=== PATIENT | male | born 1960 | race Caucasian/White ===

== ENCOUNTER 2019-04-20 15:47 | Inpatient (IN) | payer SELFPAY ==
[2019-04-20] MEDS: NORMAL SALINE 1000 ML 1,000 ML IV PRN ×2 (15:56→17:13)
[2019-04-20] MEDS ORDERED: DILTIAZEM HCL INJ 25 MG/5 ML VIAL ONE (15:59)
[2019-04-20] MEDS ORDERED: DILTIAZEM HCL/D5W 125 MG/125 ML RTUINJ IV ONE (16:06)
[2019-04-20] MEDS ORDERED: DILTIAZEM HCL INJ 25 MG/5 ML VIAL IV ONE (16:24)
[2019-04-20] MEDS ORDERED: DILTIAZEM HCL/D5W 125 MG/125 ML RTUINJ IV PRN ×2 (16:25→18:11)
[2019-04-20] MEDS ORDERED: LORAZEPAM INJ 2 MG/1 ML VIAL IV ONE (16:26)
[2019-04-20 16:40] LABS: ABSOLUTE EOSINOPHILS # (AUTO) 0.1 10^3/uL (0.0-0.6); ABSOLUTE LYMPHOCYTES (AUTO) 2.2 10^3/uL (0.5-4.7); ABSOLUTE MONOCYTES (AUTO) 1.1 10^3/uL (0.1-1.4); ABSOLUTE NEUT (AUTO) 6.6 10^3/uL (1.7-8.2); BASOPHILS % (AUTO) 0.4 % (0-2); EOSINOPHILS % (AUTO) 0.7 % (0-6); HEMATOCRIT 45.2 % (37.9-51.0); HEMOGLOBIN 15.8 g/dL (13.5-17.0); MEAN CORPUSCULAR HEMOGLOBIN 33.5 pg (27.0-33.4); MEAN CORPUSCULAR VOLUME 96 fl (80-97); MONOCYTES % (AUTO) 10.9 % (3-13); PLATELET COUNT 259 10^3/uL (150-450); RED BLOOD COUNT 4.73 10^6/uL (4.35-5.55); RED CELL DISTRIBUTION WIDTH 12.8 % (11.5-14.0); TOTAL CELLS COUNTED % (AUTO) 100 %
[2019-04-20 16:55] LABS: ALBUMIN 4.4 g/dL (3.5-5.0); ALKALINE PHOSPHATASE 69 U/L (38-126); ANION GAP 10 (5-19); ASPARTATE AMINO TRANSFERASE 49 U/L (17-59); BILIRUBIN,DIRECT 0.2 mg/dL (0.0-0.4); BILIRUBIN,TOTAL 0.6 mg/dL (0.2-1.3); BLOOD UREA NITROGEN 12 mg/dL (7-20); CALCIUM 9.3 mg/dL (8.4-10.2); CARBON DIOXIDE 27 mmol/L (22-30); CHLORIDE 97 mmol/L (98-107); GLUCOSE 220 mg/dL (75-110); POTASSIUM 4.2 mmol/L (3.6-5.0); TOTAL PROTEIN 7.4 g/dL (6.3-8.2)
[2019-04-20 16:56] LABS: ALCOHOL < 10 mg/dL (NONE DETECTED)
[2019-04-20] MEDS ORDERED: ENOXAPARIN SODIUM INJ 150 MG/1 ML DISP.SYRIN SUBCUT ONE (17:23)
--- NOTE | 2019-04-20 17:24 | ER Document Report ---
Entered by MYRANDA MONTIEL SCRIBE 04/20/19 0525 Acting as scribe for:KEN LIN IV, MD ED Cardiac - General Chief Complaint: Chest Pain Stated Complaint: CHEST PAIN/DIFFICULTY BREATHING/BLURRY VISION Mode of Arrival: Ambulatory Information source: Patient Notes: This 58 year old male patient presents to the emergency department [facility] with complaints of a heart racing sensation, palpitations, chest pain, and associated shortness of breath. Patient states all of these symptoms began suddenly this morning about 3 hours prior to arrival. Patient adds that he feels like anxiety may be playing a factor today. 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 Patient states that he has also been binge drinking the last few days, with his last alcoholic beverage being 14 hours ago. TRAVEL OUTSIDE OF THE [place] IN LAST 30 DAYS: No - Related Data Allergies/Adverse Reactions: Penicillins Allergy (Verified 04/20/19 16:50) Home Medications: lisinpril. crestor. gabapentin. nexium. daily vitamin. humalog. lantus Past Medical History - General Information source: Patient - Social History Smoking Status: Current Every Day Smoker Cigarette use (# per day): Yes Frequency of alcohol use: binge started Family History: Reviewed & Not Pertinent, DM, Other - Cancer Patient has suicidal ideation: No Patient has homicidal ideation: No Endocrine Medical History: Reports: Hx Diabetes Mellitus Type 2 Past Surgical History: Reports: Hx Nose Surgery - At the age of 14 Review of Systems - Review of Systems Constitutional: No symptoms reported EENT: No symptoms reported Cardiovascular: See HPI, Chest pain, Palpitations, Heart racing Respiratory: See HPI, Short of breath Gastrointestinal: No symptoms reported Genitourinary: No symptoms reported Male Genitourinary: No symptoms reported Musculoskeletal: No symptoms reported Skin: No symptoms reported Hematologic/Lymphatic: No symptoms reported Neurological/Psychological: See HPI, Anxiety -: Yes All other systems reviewed and negative Physical Exam - Vital signs Vitals: Resp Pulse Ox 15 96 04/20/19 16:02 04/20/19 16:02 Interpretation: Normal - General General appearance: Appears well, Alert - HEENT Head: Normocephalic, Atraumatic Eyes: Normal Pupils: PERRL - Respiratory Respiratory status: No respiratory distress Chest status: Nontender Breath sounds: Normal Chest palpation: Normal - Cardiovascular Rhythm: Tachycardia - into the low 200s initially Heart sounds: Normal auscultation Murmur: No - Abdominal Inspection: Normal Distension: No distension Bowel sounds: Normal Tenderness: Nontender Organomegaly: No organomegaly - Back Back: Normal, Nontender - Extremities General upper extremity: Normal inspection. No: Edema General lower extremity: Normal inspection. No: Edema - Neurological Neuro grossly intact: Yes Cognition: Normal Orientation: AAOx4 [place] Coma Scale Eye Opening: Spontaneous [place] Coma Scale Verbal: Oriented [place] Coma Scale Motor: Obeys Commands [place] Coma Scale Total: 15 Speech: Normal Motor strength normal: LUE, RUE, LLE, RLE Sensory: Normal - Psychological Associated symptoms: Anxious - Skin Skin Temperature: Warm Skin Moisture: Dry Skin Color: Normal Course - Vital Signs Vital signs: Temp Pulse Resp BP Pulse Ox 20 128/87 H 98 04/20/19 17:41 04/20/19 17:41 04/20/19 17:41 - Laboratory Result Diagrams: 04/20/19 16:01 04/20/19 16:01 Laboratory results interpreted by me: 04/20/19 04/20/19 04/20/19 16:01 16:01 16:04 MCH 33.5 H Sodium 134.3 L Chloride 97 L Glucose 220 H POC Glucose 241 H Urine Protein Urine Glucose (UA) Urine Blood 04/20/19 17:27 MCH Sodium Chloride Glucose POC Glucose Urine Protein 100 H Urine Glucose (UA) >=500 H Urine Blood SMALL H - EKG Interpretation by Me Additional EKG results interpreted by me: 04/20/19 18:16 First EKG on this patient was obtained on 04/20/2019 at 1553 hrs. and was interp reted by this MD. Findings: Wide-complex tachycardia with a rate of 221, right bundle branch block is present and ST segments are nonspecific. [place] appears normal. Impression abnormal EKG Second EKG obtained on this patient was done on 04/20/2019 at 1602 hrs. and was interpreted by this MD. Findings wide-complex tachycardia persists, right bundle branch block present, nonspecific ST segments present. [place] appears normal. Impression: Abnormal EKG Third EKG was obtained on the patient on 04/20/2019 at 1604 hrs. after administration of 5 mg of IV Cardizem. EKG interpreted by this MD. Findings: Atrial flutter is present with an apparent 2-1 block. Right bundle branch block is present [place] appears normal, ST segments are nonspecific. Impression abnormal EKG - Consults DR. RICCI GARCIA Time consulted: 18:00 - HOSPITALIST Reason for consultation: 04/20/19 18:14 NEW ONSET ATRIAL FLUTTER WITH RVR Consulted provider: will come to ER Critical Care Note - Critical Care Note Total time excluding time spent on procedures (mins): 60 - a flutter with rvr Discharge - Discharge Clinical Impression: Atrial flutter with rapid ventricular response, Alcohol use disorder Condition: Good Disposition: ADMITTED INPATIENT Admitting Provider: DR. RICCI GARCIA Unit Admitted: IMCU I personally performed the services described in the documentation, reviewed and edited the documentation which was dictated to the scribe in my presence, and it accurately records my words and actions.
--- NOTE | 2019-04-20 17:35 | RADIOLOGY REPORT (SQ) ---
EXAM DESCRIPTION: CHEST SINGLE VIEW COMPLETED DATE/TIME: 04/20/2019 3:53 pm REASON FOR STUDY: tachycardia, chest pain COMPARISON: CHEST RADIOGRAPH, 09/13/2015 EXAM PARAMETERS: NUMBER OF VIEWS: One view. TECHNIQUE: Single frontal radiographic view of the chest acquired. RADIATION DOSE: NA LIMITATIONS: None. FINDINGS: LUNGS AND PLEURA: No opacities, masses or pneumothorax. No pleural effusion. MEDIASTINUM AND HILAR STRUCTURES: No masses. Contour normal. HEART AND VASCULAR STRUCTURES: Heart normal in size. Normal vasculature. BONES: No acute findings. HARDWARE: None in the chest. OTHER: No other significant finding. IMPRESSION: NO ACUTE RADIOGRAPHIC FINDING IN THE CHEST. TECHNICAL DOCUMENTATION: JOB ID: [id number] [employer]- All Rights Reserved Reading location - IP/workstation name: [email or web address]
[2019-04-20 17:57] LABS: APPEARANCE,URINE SLIGHTLY-CLOUDY; BILIRUBIN,URINE NEGATIVE (NEGATIVE); COLOR,URINE YELLOW; GLUCOSE, URINE >=500 mg/dL (NEGATIVE); KETONES,URINE NEGATIVE (NEGATIVE); LEUKOCYTE ESTERASE,URINE NEGATIVE (NEGATIVE); NITRITE,URINE NEGATIVE (NEGATIVE); PROTEIN,URINE 100 mg/dL (NEGATIVE); URINE SPECIFIC GRAVITY 1.003; UROBILINOGEN,URINE NEGATIVE mg/dL (<2.0)
[2019-04-20 18:00] LABS: URINE AMPHETAMINES SCREEN NEGATIVE; URINE BARBITURATES SCREEN NEGATIVE; URINE BENZODIAZEPINES SCREEN NEGATIVE; URINE COCAINE SCREEN NEGATIVE; URINE MARIJUANA (THC) SCREEN NEGATIVE; URINE METHADONE SCREEN NEGATIVE; URINE PHENCYCLIDINE SCREEN NEGATIVE
[2019-04-20] MEDS ORDERED: ACETAMINOPHEN 325 MG TABLET PO PRN (18:57)
[2019-04-20] MEDS ORDERED: ONDANSETRON HCL INJ/PF 4 MG/2 ML SDV IV PRN (18:57)
[2019-04-20] MEDS ORDERED: ONDANSETRON 4 MG TAB.RAPDIS PO PRN (18:57)
[2019-04-20] MEDS ORDERED: IPRATROPIUM/ALBUTEROL 0.5-2.5 MG/3 ML AMPUL NEB PRN (18:57)
[2019-04-20] MEDS ORDERED: RINGERS SOLUTION,LACTATED 1,000 ML IV SCH (19:00)
[2019-04-20] MEDS ORDERED: LORAZEPAM INJ 2 MG/1 ML VIAL IV PRN (19:09)
--- NOTE | 2019-04-20 19:20 | PDOC H&P ---
History of Present Illness Admission Date/PCP: 04/20/19 18:18 History of Present Illness: BYRON NATH is a 58 year old male with past medical history T2DM on insulin long-term, COPD, MERYL, HLD, new onset alcohol abuse, current smoker who presents with 1 day history chest pain and palpitations. 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 He denies any alcohol consumption in excess in the past last drink was 4 AM on day of admission. Labs of note include sodium 134, creatinine 1.1, glucose 220, troponin 0 0.026. Telemetry and EKG showed atrial flutter patient was started on diltiazem drip promptly dropping his heart rate from 130s down to upper 80s but improved symptoms. Admitted for further cardiac monitoring and diltiazem drip. Past Medical History Cardiac Medical History: Reports: None Pulmonary Medical History: Reports: Chronic Obstructive Pulmonary Disease (COPD) EENT Medical History: Reports: None Neurological Medical History: Reports: None Endocrine Medical History: Reports: Diabetes Mellitus Type 2 Renal/ Medical History: Reports: None Malignancy Medical History: Reports: None GI Medical History: Reports: None Musculoskeltal Medical History: Reports: None Skin Medical History: Reports: None Psychiatric Medical History: Reports: None Traumatic Medical History: Reports: None Hematology: Reports: None Past Surgical History Past Surgical History: Reports: None Social History Smoking Status: Current Every Day Smoker - Advance Directive Resuscitation Status: Do Not Resuscitate Surrogate healthcare decision maker:: Advance care planning time spent over 16 minutes discussing all aspects of CODE STATUS including cardioversion/intubation/chest compressions and patient stated very clearly he does want to be DO NOT RESUSCITATE and he decided this long ago. He wants his M POA to be his daughter Barbara who can be reached at [phone] due to Family History Family History: Reviewed & Not Pertinent, DM, Malignancy, Other - Cancer Parental Family History Reviewed: Yes Children Family History Reviewed: Unknown Sibling(s) Family History Reviewed.: Unknown Medication/Allergy Allergies/Adverse Reactions: Penicillins Allergy (Verified 04/20/19 16:50) Review of Systems Constitutional: PRESENT: as per HPI Eyes: PRESENT: as per HPI Ears: PRESENT: as per HPI Nose, Mouth, and Throat: PRESENT: as per HPI Breasts: PRESENT: as per HPI Cardiovascular: PRESENT: chest pain, dyspnea on exertion, palpitations Respiratory: PRESENT: as per HPI Gastrointestinal: PRESENT: as per HPI Genitourinary: PRESENT: as per HPI Musculoskeletal: PRESENT: as per HPI Integumentary: PRESENT: as per HPI Neurological: PRESENT: as per HPI Psychiatric: PRESENT: as per HPI Endocrine: PRESENT: as per HPI Hematologic/Lymphatic: PRESENT: as per HPI Allergic/Immunologic: PRESENT: as per HPI Physical Exam Vital Signs: Temp Pulse Resp BP Pulse Ox 14 141/90 H 98 04/20/19 18:56 04/20/19 18:56 04/20/19 18:56 Intake & Output 04/19/19 04/20/19 04/21/19 06:59 06:59 06:59 Intake Total 1999 Balance 1999 Weight 132.1 kg General appearance: PRESENT: mild distress Head exam: PRESENT: atraumatic, normocephalic Eye exam: PRESENT: conjunctiva pink Mouth exam: PRESENT: moist Respiratory exam: PRESENT: clear to auscultation larry. ABSENT: rales, rhonchi, wheezes Cardiovascular exam: PRESENT: irregular rhythm, tachycardia GI/Abdominal exam: PRESENT: normal bowel sounds, soft. ABSENT: distended, guarding, mass, organolmegaly, rebound, tenderness Neurological exam: PRESENT: alert, awake, oriented to person, oriented to place, oriented to time, oriented to situation, CN II-XII grossly intact. ABSENT: motor sensory deficit Psychiatric exam: PRESENT: appropriate affect, normal mood. ABSENT: homicidal ideation, suicidal ideation Skin exam: PRESENT: dry, intact, warm. ABSENT: cyanosis, rash Results Laboratory Results: 04/20/19 16:01 04/20/19 16:01 04/20/19 04/20/19 04/20/19 16:01 16:01 17:27 WBC 10.0 RBC 4.73 Hgb 15.8 Hct 45.2 MCV 96 MCH 33.5 H MCHC 35.0 RDW 12.8 Plt Count 259 Seg Neutrophils % 66.0 Sodium 134.3 L Potassium 4.2 Chloride 97 L Carbon Dioxide 27 Anion Gap 10 BUN 12 Creatinine 1.16 Est GFR ( Amer) > 60 Glucose 220 H Calcium 9.3 Total Bilirubin 0.6 AST 49 Alkaline Phosphatase 69 Total Protein 7.4 Albumin 4.4 Urine Color YELLOW Urine Appearance SLIGHTLY-CLOUDY Urine pH 8.0 Ur Specific [place] 1.003 Urine Protein 100 H Urine Glucose (UA) >=500 H Urine Ketones NEGATIVE Urine Blood SMALL H Urine Nitrite NEGATIVE Ur Leukocyte Esterase NEGATIVE Urine WBC (Auto) 1 Urine RBC (Auto) 1 04/20/19 16:01 Troponin I 0.026 Impressions: Chest X-Ray 04/20/19 16:28 IMPRESSION: NO ACUTE RADIOGRAPHIC FINDING IN THE CHEST. 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, denies any heavy alcohol abuse prior to that, last drink 4 AM on day of admission IV Ativan as needed, does not need CIWA but if he begins to exhibit signs of withdrawal will need to start overnight IV fluids Thiamine Multivitamin (3) T2DM (type 2 diabetes mellitus) Qualifiers: Diabetes mellitus moth exterminator insulin use: with halfway use Diabetes mellitus complication status: with neurologic complications Diabetes mellitus complication detail: with unspecified neuropathy Qualified Code(s): E11.40 - Type 2 diabetes mellitus with diabetic neuropathy, unspecified; Z79.4 - skilled nursing (current) use of insulin Is this a current diagnosis for this admission?: Yes Plan: Takes Lantus 60 units every morning, Humalog 20 units 3 times daily AC; cont inue to use as well as sliding scale insulin and Accu-Cheks Check hemoglobin A1c Has diabetic neuropathy continue gabapentin (4) Diabetic neuropathy Qualifiers: Diabetes mellitus type: type 2 Diabetes mellitus complication detail: diabetic mononeuropathy Qualified Code(s): E11.41 - Type 2 diabetes mellitus with diabetic mononeuropathy Is this a current diagnosis for this admission?: Yes (5) COPD (chronic obstructive pulmonary disease) Is this a current diagnosis for this admission?: Yes Plan: Not in exacerbation (6) Current smoker Is this a current diagnosis for this admission?: Yes (7) MERYL (obstructive sleep apnea) Is this a current diagnosis for this admission?: Yes (8) HLD (hyperlipidemia) Is this a current diagnosis for this admission?: Yes (9) Essential hypertension Is this a current diagnosis for this admission?: Yes - Time Time Spent with patient: 35 or more minutes Smoking Cessation Education: over 10 minutes Medications reviewed and adjusted accordingly: Yes Anticipated discharge: Home Within: within 48 hours - Inpatient Certification Medical Necessity: Significant Comorbidiites Make Outpatient Treatment Too Risky, Need Close Monitoring Due to Risk of Patient Decompensation, Risk of Complication if Not Cared For in Hospital
[2019-04-20] MEDS: GABAPENTIN 300 MG CAPSULE PO SCH (23:48)
[2019-04-20] MEDS: INSULIN LISPRO 100 UNIT/ML 3 ML VIAL SUBCUT SCH (23:48)
[2019-04-21] MEDS: PANTOPRAZOLE SODIUM 20 MG TABLET.DR PO SCH (05:45)
[2019-04-21 06:38] LABS: ABSOLUTE EOSINOPHILS # (AUTO) 0.1 10^3/uL (0.0-0.6); ABSOLUTE LYMPHOCYTES (AUTO) 2.3 10^3/uL (0.5-4.7); ABSOLUTE MONOCYTES (AUTO) 0.8 10^3/uL (0.1-1.4); ABSOLUTE NEUT (AUTO) 3.4 10^3/uL (1.7-8.2); BASOPHILS % (AUTO) 0.6 % (0-2); EOSINOPHILS % (AUTO) 2.1 % (0-6); HEMOGLOBIN 13.8 g/dL (13.5-17.0); MEAN CORPUSCULAR HEMOGLOBIN 33.8 pg (27.0-33.4); MEAN CORPUSCULAR HGB CONC 35.5 g/dL (32.0-36.0); MEAN CORPUSCULAR VOLUME 95 fl (80-97); MONOCYTES % (AUTO) 12.2 % (3-13); PLATELET COUNT 216 10^3/uL (150-450); RED CELL DISTRIBUTION WIDTH 12.5 % (11.5-14.0); SEGMENTED NEUTROPHILS % (AUTO) 51.1 % (42-78); TOTAL CELLS COUNTED % (AUTO) 100 %; WHITE BLOOD COUNT 6.6 10^3/uL (4.0-10.5)
[2019-04-21 06:52] LABS: CHOLESTEROL 141.99 mg/dL (0-200); TRIGLYCERIDES 134 mg/dL (<150)
[2019-04-21] MEDS ORDERED: DILTIAZEM HCL 30 MG TABLET PO ONE (07:00)
[2019-04-21 07:04] LABS: DIRECT LDL 68 mg/dL (<100)
[2019-04-21] MEDS: GABAPENTIN 300 MG CAPSULE PO SCH ×2 (09:11→23:00)
[2019-04-21] MEDS: LISINOPRIL 5 MG TABLET PO SCH (09:11)
[2019-04-21] MEDS: MULTIVITAMIN TABLET PO SCH (09:11)
[2019-04-21] MEDS ORDERED: ENOXAPARIN SODIUM INJ 40 MG/0.4 ML DISP.SYRIN SUBCUT SCH ×2 (10:00)
[2019-04-21] MEDS: INSULIN LISPRO 100 UNIT/ML 3 ML VIAL SUBCUT SCH ×8 (10:02→23:00)
[2019-04-21] MEDS: INSULIN GLARGINE,HUM.REC.ANLOG 1,000 UNIT/10 ML VIAL SUBCUT SCH ×2 (10:03→11:11)
[2019-04-21] MEDS ORDERED: INSULIN GLARGINE,HUM.REC.ANLOG 1,000 UNIT/10 ML VIAL (PYX) SUBCUT ONE (11:07)
[2019-04-21] MEDS: ENOXAPARIN SODIUM INJ 150 MG/1 ML DISP.SYRIN SUBCUT SCH ×2 (11:11→23:01)
[2019-04-21] MEDS: DILTIAZEM HCL 30 MG TABLET PO SCH ×3 (11:11→23:09)
[2019-04-21 12:35] LABS: CREATINE KINASE MB 4.75 ng/mL (<4.55); TROPONIN I 0.175 ng/mL
[2019-04-21 12:45] LABS: HEMATOCRIT 41.9 % (37.9-51.0); HEMOGLOBIN 14.5 g/dL (13.5-17.0); MEAN CORPUSCULAR HEMOGLOBIN 33.4 pg (27.0-33.4); MEAN CORPUSCULAR HGB CONC 34.7 g/dL (32.0-36.0); MEAN CORPUSCULAR VOLUME 96 fl (80-97); PLATELET COUNT 205 10^3/uL (150-450); RED BLOOD COUNT 4.35 10^6/uL (4.35-5.55); RED CELL DISTRIBUTION WIDTH 13.1 % (11.5-14.0); WHITE BLOOD COUNT 9.3 10^3/uL (4.0-10.5)
--- NOTE | 2019-04-21 13:02 | PDOC PROGRESS REPORT ---
Subjective Subjective:: Patient is a 58-year-old white male who presented with new onset A. fib/flutter, chest pain, elevated troponin, uncontrolled diabetes, hypertension. 04/21: Heart rate and rhythm have converted back to normal sinus overnight and patient was taken off IV diltiazem and put on oral. His chads 2 vasc score is 2 which qualifies for anticoagulation. He has been on Lovenox since admission and will be transitioned from this to Coumadin. His troponin has been rising overnight and cardiology will need to be consulted. He may need a stress test or cardiac cath prior to discharge. Reason For Visit: ATRIAL FLUTTER ACUTE,CHEST PAIN,ETOH ABUSE Physical Exam Vital Signs: Temp Pulse Resp BP Pulse Ox 98.1 F 75 18 151/75 H 95 04/21/19 08:17 04/21/19 09:00 04/21/19 08:17 04/21/19 09:00 04/21/19 08:17 Intake & Output 04/20/19 04/21/19 04/22/19 06:59 06:59 06:59 Intake Total 2600 Output Total 0 Balance 2600 Weight 131.3 kg General appearance: PRESENT: no acute distress, well-developed, well-nourished Head exam: PRESENT: atraumatic, normocephalic Eye exam: PRESENT: conjunctiva pink Mouth exam: PRESENT: moist Respiratory exam: PRESENT: clear to auscultation larry. ABSENT: rales, rhonchi, wheezes Cardiovascular exam: PRESENT: RRR. ABSENT: diastolic murmur, rubs, systolic murmur GI/Abdominal exam: PRESENT: normal bowel sounds, soft. ABSENT: distended, guarding, mass, organolmegaly, rebound, tenderness Neurological exam: PRESENT: alert, awake, oriented to person, oriented to place, oriented to time, oriented to situation Psychiatric exam: PRESENT: appropriate affect, normal mood Skin exam: PRESENT: dry, intact, warm Results Laboratory Results: 04/21/19 05:44 04/20/19 16:01 04/20/19 04/20/19 04/20/19 16:01 16:01 16:01 WBC 10.0 RBC 4.73 Hgb 15.8 Hct 45.2 MCV 96 MCH 33.5 H MCHC 35.0 RDW 12.8 Plt Count 259 Seg Neutrophils % 66.0 Sodium 134.3 L Potassium 4.2 Chloride 97 L Carbon Dioxide 27 Anion Gap 10 BUN 12 Creatinine 1.16 Est GFR ( Amer) > 60 Glucose 220 H Calcium 9.3 Total Bilirubin 0.6 AST 49 Alkaline Phosphatase 69 Total Protein 7.4 Albumin 4.4 Triglycerides Cholesterol LDL Cholesterol Direct VLDL Cholesterol HDL Cholesterol Lipase 102.9 TSH Urine Color Urine Appearance Urine pH Ur Specific [place] Urine Protein Urine Glucose (UA) Urine Ketones Urine Blood Urine Nitrite Ur Leukocyte Esterase Urine WBC (Auto) Urine RBC (Auto) 04/20/19 04/21/19 04/21/19 17:27 05:44 05:44 WBC 6.6 RBC 4.10 L Hgb 13.8 Hct 39.0 MCV 95 MCH 33.8 H MCHC 35.5 RDW 12.5 Plt Count 216 Seg Neutrophils % 51.1 Sodium Potassium Chloride Carbon Dioxide Anion Gap BUN Creatinine Est GFR ( Amer) Glucose Calcium Total Bilirubin AST Alkaline Phosphatase Total Protein Albumin Triglycerides 134 Cholesterol 141.99 LDL Cholesterol Direct 68 VLDL Cholesterol 27.0 HDL Cholesterol 58 Lipase TSH Urine Color YELLOW Urine Appearance SLIGHTLY-CLOUDY Urine pH 8.0 Ur Specific [place] 1.003 Urine Protein 100 H Urine Glucose (UA) >=500 H Urine Ketones NEGATIVE Urine Blood SMALL H Urine Nitrite NEGATIVE Ur Leukocyte Esterase NEGATIVE Urine WBC (Auto) 1 Urine RBC (Auto) 1 04/21/19 05:44 WBC RBC Hgb Hct MCV MCH MCHC RDW Plt Count Seg Neutrophils % Sodium Potassium Chloride Carbon Dioxide Anion Gap BUN Creatinine Est GFR ( Amer) Glucose Calcium Total Bilirubin AST Alkaline Phosphatase Total Protein Albumin Triglycerides Cholesterol LDL Cholesterol Direct VLDL Cholesterol HDL Cholesterol Lipase TSH 1.85 Urine Color Urine Appearance Urine pH Ur Specific [place] Urine Protein Urine Glucose (UA) Urine Ketones Urine Blood Urine Nitrite Ur Leukocyte Esterase Urine WBC (Auto) Urine RBC (Auto) 04/20/19 04/21/19 04/21/19 16:01 05:44 05:44 Creatine Kinase 145 CK-MB (CK-2) Troponin I 0.026 0.318 04/21/19 04/21/19 05:44 11:46 Creatine Kinase 148 CK-MB (CK-2) 5.13 H Troponin I Cancelled Impressions: Chest X-Ray 04/20/19 16:28 IMPRESSION: NO ACUTE RADIOGRAPHIC FINDING IN THE CHEST. Assessment and Plan - Diagnosis (1) Atrial flutter with rapid ventricular response Is this a current diagnosis for this admission?: Yes Plan: Seen on EKG and telemetry Started on 5 mg diltiazem drip and sent to [facility] [place] on admission Suspect this rhythm was propagated by untreated MERYL combined with alcohol abuse and dehydration We will need to address long-term anticoagulation at discharge Started on Lovenox in ED Coumadin started Chads 2 vasc score of 2 qualifies for anticoagulation, patient does not have insurance, started Coumadin protocol which does not need to be bridged however Lovenox was continued due to rising troponin. 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, denies any heavy alcohol abuse prior to that, last drink 4 AM on day of admission IV Ativan as needed, does not need CIWA but if he begins to exhibit signs of withdrawal will need to start overnight IV fluids Thiamine Multivitamin No signs or symptoms of withdrawal since admission (4) T2DM (type 2 diabetes mellitus) Qualifiers: Diabetes mellitus residential insulin use: with residential use Diabetes mellitus complication status: with neurologic complications Diabetes mellitus complication detail: with unspecified neuropathy Qualified Code(s): E11.40 - Type 2 diabetes mellitus with diabetic neuropathy, unspecified; Z79.4 - terminal make up operator (current) use of insulin Is this a current diagnosis for this admission?: Yes (5) Diabetic neuropathy Qualifiers: Diabetes mellitus type: type 2 Diabetes mellitus complication detail: diabetic mononeuropathy Qualified Code(s): E11.41 - Type 2 diabetes mellitus with diabetic mononeuropathy Is this a current diagnosis for this admission?: Yes (6) COPD (chronic obstructive pulmonary disease) Is this a current diagnosis for this admission?: Yes (7) Current smoker Is this a current diagnosis for this admission?: Yes (8) MERYL (obstructive sleep apnea) Is this a current diagnosis for this admission?: Yes (9) HLD (hyperlipidemia) Is this a current diagnosis for this admission?: Yes (10) Essential hypertension Is this a current diagnosis for this admission?: Yes - Time Time Spent with patient: 25-34 minutes Medications reviewed and adjusted accordingly: Yes Anticipated discharge: Home
--- NOTE | 2019-04-21 17:36 | EKG REPORT ---
SEVERITY:- ABNORMAL ECG - SINUS RHYTHM RIGHT BUNDLE BRANCH BLOCK : Confirmed by: Sanjiv Gil 21-Apr-2019 17:36:02
--- NOTE | 2019-04-21 17:39 | EKG REPORT ---
SEVERITY:- ABNORMAL ECG - WIDE COMPLEX TACHYCARDIA RBBB AND LPFB : Confirmed by: Sanjiv Gil 21-Apr-2019 17:38:48
--- NOTE | 2019-04-21 17:39 | EKG REPORT ---
SEVERITY:- ABNORMAL ECG - WIDE COMPLEX TACHYCARDIA RBBB AND LPFB : Confirmed by: Sanjiv Gil 21-Apr-2019 17:38:54
--- NOTE | 2019-04-21 17:39 | EKG REPORT ---
SEVERITY:- ABNORMAL ECG - ATRIAL FLUTTER WITH 2:1 AV BLOCK RIGHT BUNDLE BRANCH BLOCK REC REPEAT EKG : Confirmed by: Sanjiv Gil 21-Apr-2019 17:38:37
[2019-04-21 18:27] LABS: CREATINE KINASE MB 4.48 ng/mL (<4.55); TROPONIN I 0.134 ng/mL
[2019-04-21] MEDS ORDERED: ATORVASTATIN CALCIUM 40 MG TABLET PO SCH (22:00)
[2019-04-21] MEDS ORDERED: WARFARIN SODIUM 5 MG TABLET PO SCH (22:00)
[2019-04-21] MEDS: RINGERS SOLUTION,LACTATED 1,000 ML IV PRN (23:09)
[2019-04-22 05:14] LABS: HEMOGLOBIN 14.2 g/dL (13.5-17.0); MEAN CORPUSCULAR HEMOGLOBIN 33.1 pg (27.0-33.4); MEAN CORPUSCULAR HGB CONC 34.7 g/dL (32.0-36.0); MEAN CORPUSCULAR VOLUME 95 fl (80-97); PLATELET COUNT 193 10^3/uL (150-450); RED BLOOD COUNT 4.29 10^6/uL (4.35-5.55); WHITE BLOOD COUNT 6.6 10^3/uL (4.0-10.5)
[2019-04-22] MEDS: DILTIAZEM HCL 30 MG TABLET PO SCH ×2 (05:27→13:18)
[2019-04-22] MEDS: PANTOPRAZOLE SODIUM 20 MG TABLET.DR PO SCH (05:27)
[2019-04-22 05:32] LABS: INTERNATIONAL RATION (INR) 0.96; PROTHROMBIN TIME 12.8 SEC (11.4-15.4)
[2019-04-22] MEDS: INSULIN LISPRO 100 UNIT/ML 3 ML VIAL SUBCUT SCH ×6 (07:55→15:38)
[2019-04-22] MEDS: RINGERS SOLUTION,LACTATED 1,000 ML IV PRN (08:34)
[2019-04-22] MEDS: LISINOPRIL 5 MG TABLET PO SCH (09:28)
[2019-04-22] MEDS: GABAPENTIN 300 MG CAPSULE PO SCH (09:29)
[2019-04-22] MEDS: MULTIVITAMIN TABLET PO SCH (09:29)
[2019-04-22] MEDS: INSULIN GLARGINE,HUM.REC.ANLOG 1,000 UNIT/10 ML VIAL SUBCUT SCH (09:29)
[2019-04-22] MEDS: ENOXAPARIN SODIUM INJ 150 MG/1 ML DISP.SYRIN SUBCUT SCH (09:31)
[2019-04-22 13:47] LABS: APPEARANCE,URINE CLEAR; BILIRUBIN,URINE NEGATIVE (NEGATIVE); COLOR,URINE YELLOW; GLUCOSE, URINE >=500 mg/dL (NEGATIVE); KETONES,URINE NEGATIVE (NEGATIVE); LEUKOCYTE ESTERASE,URINE NEGATIVE (NEGATIVE); NITRITE,URINE NEGATIVE (NEGATIVE); PROTEIN,URINE NEGATIVE (NEGATIVE); UROBILINOGEN,URINE NEGATIVE mg/dL (<2.0)
--- NOTE | 2019-04-22 16:58 | XCELERA REPORT ---
[address] [address] Transthoracic Echocardiogram Report Name: BYRON NATH Age: 58 yrs Gender: Male : 1960 Patient Status: Inpatient Patient Location: [address] [place], [place] [id number] Study Date: 04/22/2019 12:18 PM Height: 72 in Weight: 289 lb BSA: 2.5 m2 Procedure: A two-dimensional transthoracic echocardiogram with color flow and Doppler was performed. The study was technically difficult with many images being suboptimal in quality. Reason For Study: NSTEMI, ,Paroxysmal Atrial Fibrillation History: NSTEMI, ,Paroxysmal Atrial Fibrillation. Ordering Physician: RICCI GARCIA Performed By: Cristina Regan Interpretation Summary The left ventricle is normal in size. There is normal left ventricular wall thickness. LV EF is > than 60% Left ventricular systolic function is normal. Doppler measurements suggest impaired left ventricular relaxation, which is associated with grade I/IV or mild diastolic dysfunction The left ventricular wall motion is normal. There is no thrombus. Probably no ASD,VSD,or PFO seen. The right ventricle is normal in size and function. The right ventricle is not well visualized secondary to technical limitations The right atrium is normal. The left atrial size is normal. There is mild mitral annular calcification. There is no evidence of mitral valve prolapse. There is no vegetation seen on the mitral valve. There is no mitral valve stenosis. There is a trace amount of mitral regurgitation There is no aortic valvular vegetation. There is no aortic valve stenosis There is no LVOT obstruction. No aortic regurgitation is present. There is no tricuspid stenosis. There is a trace amount of tricuspid regurgitation Right ventricular systolic pressure is normal. RVSP is 23 to 28 mm of Hg , with RA mean of 5 to 10. There is no pulmonic valvular stenosis. There is no pulmonic valvular regurgitation. The aortic root is not well visualized but is probably normal size. The inferior vena cava appeared normal and decreased > 50% with respiration (RAP 5-10 mmHg) There is no pericardial effusion. MMode/2D Measurements & Calculations RVDd: 2.3 cm LVIDd: 5.0 cm FS: 34.7 % Ao root diam: 3.5 cm IVSd: 1.1 cm LVIDs: 3.3 cm EDV(Teich): 118.0 ml Ao root area: 9.4 cm2 LVPWd: 0.90 cm ESV(Teich): 42.9 ml LA dimension: 3.4 cm EF(Teich): 63.6 % Doppler Measurements & Calculations MV E max meliton: MV P1/2t max meliton: Ao V2 max: LV V1 max P.5 cm/sec 109.9 cm/sec 127.6 cm/sec 5.2 mmHg MV A max meliton: MV P1/2t: 53.5 msec Ao max P.5 mmHgLV V1 max: 90.3 cm/sec MVA(P1/2t): 4.1 cm2 114.0 cm/sec MV E/A: 0.90 MV dec slope: 601.4 cm/sec2 MV dec time: 0.19 sec PA V2 max: TR max meliton: MV P1/2t-pr_phl: 87.1 cm/sec 211.1 cm/sec 53.5 msec PA max PG: TR max P.8 mmHg 3.0 mmHg Left Ventricle The left ventricle is normal in size. There is normal left ventricular wall thickness. LV EF is > than 60%. Left ventricular systolic function is normal. Doppler measurements suggest impaired left ventricular relaxation, which is associated with grade I/IV or mild diastolic dysfunction. The left ventricular wall motion is normal. There is no thrombus. Probably no ASD,VSD,or PFO seen. Right Ventricle The right ventricle is normal in size and function. The right ventricle is not well visualized secondary to technical limitations. Atria The right atrium is normal. The left atrial size is normal. Mitral Valve There is mild mitral annular calcification. There is no evidence of mitral valve prolapse. There is no vegetation seen on the mitral valve. There is no mitral valve stenosis. There is a trace amount of mitral regurgitation. Aortic Valve There is no aortic valvular vegetation. There is no aortic valve stenosis. There is no LVOT obstruction. No aortic regurgitation is present. Tricuspid Valve There is no tricuspid stenosis. There is a trace amount of tricuspid regurgitation. Right ventricular systolic pressure is normal. RVSP is 23 to 28 mm of Hg , with RA mean of 5 to 10. Pulmonic Valve There is no pulmonic valvular stenosis. There is no pulmonic valvular regurgitation. Great Vessels The aortic root is not well visualized but is probably normal size. The inferior vena cava appeared normal and decreased > 50% with respiration (RAP 5-10 mmHg). Effusions There is no pericardial effusion. : RICCI GARCIA, Shayy
[2019-04-22] MEDS ORDERED: RIVAROXABAN 10 MG TABLET PO SCH (17:00)
--- NOTE | 2019-04-22 17:00 | PDOC DISCHARGE SUMMARY ---
Impression - Admit/DC Date/PCP Admission Date/Primary Care Provider: 04/20/19 18:18 Discharge Date: 04/22/19 - Assessment Summary: Patient was admitted for evaluation of acute onset palpitations with some associated chest pain. On presentation chest x-ray was unremarkable. Patient was noted to be significantly tachycardic. EKG revealed tachycardia with a right bundle branch block which was later deemed to be atrial flutter with rapid ventricular response and right bundle branch block on subsequent EKG after the rate had slowed down. Patient was placed on Cardizem drip with improvement of his heart rate. Patient was later started on oral diltiazem immediate release and then transitioned today to sustained-release. Patient was started on anticoagulation given his chads vasc score of 2. I confirmed the patient's per pharmacy that patient would have a relatively low cost for his Xarelto of about $12-$20 a month. As such I will place patient on Xarelto and will have patient follow-up at the [facility] for further care. Patient has been in normal sinus rhythm now for over 24 hours and his symptoms have completely resolved. Echocardiogram was done today and I reviewed the preliminary results which shows an ejection fraction of around 65% with no significant valvular abnormality noted. I have instructed patient to follow-up to obtain the finalized result. Of note patient has not had any evidence of alcohol withdrawal while in the hospital. Patient is being discharged in stable conditions to follow-up with the [facility] for further care. Patient is currently in the process of also applying for Medicaid and will hopefully be able to see a web operations specialist once his Medicaid gets approved. Patient is currently stable and fit for discharge. - Additional Information Resuscitation Status: Do Not Resuscitate Discharge Diet: Regular Discharge Activity: Activity As Tolerated Referrals: [facility] [Outside] - 05/08/19 3:30 pm Prescriptions: Diltiazem HCl [Cardizem Cd 120 mg Capsule] 120 mg PO DAILY #30 cap.sr.24h Atorvastatin Calcium [Lipitor 40 mg Tablet] 40 mg PO QHS #30 tablet Rivaroxaban [Xarelto 10 mg Tablet] 20 mg PO WSUPPER #30 tablet Home Medications: Atorvastatin Calcium [Lipitor 40 mg Tablet] 40 mg PO QHS #30 tablet 04/22/19 Diltiazem HCl [Cardizem Cd 120 mg Capsule] 120 mg PO DAILY #30 cap.sr.24h 04/22/19 Insulin Glargine,Hum.rec.anlog [Lantus Insulin 100 Unit/1 ml 10 ml] 60 units SUBCUT DAILY 04/22/19 Insulin Lispro [Humalog Insulin 100 Unit/1 ml 3 ml Vial] 20 unit SUBCUT AC 04/22/19 Rivaroxaban [Xarelto 10 mg Tablet] 20 mg PO WSUPPER #30 tablet 04/22/19 History of Present Illiness History of Present Illness: BYRON NATH is a 58 year old male with past medical history T2DM on insulin long-term, COPD, MERYL, HLD, new onset alcohol abuse, current smoker who presents with 1 day history chest pain and palpitations. 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 He denies any alcohol consumption in excess in the past last drink was 4 AM on day of admission. Labs of note include sodium 134, creatinine 1.1, glucose 220, troponin 0 0.026. Telemetry and EKG showed atrial flutter patient was started on diltiazem drip promptly dropping his heart rate from 130s down to upper 80s but improved symptoms. Admitted for further cardiac monitoring and diltiazem drip. Physical Exam Vital Signs: Temp Pulse Resp BP Pulse Ox 98.6 F 84 17 150/89 H 98 04/22/19 15:32 04/22/19 15:32 04/22/19 15:32 04/22/19 15:32 04/22/19 15:32 Intake & Output 04/21/19 04/22/19 04/23/19 06:59 06:59 06:59 Intake Total 2600 1131 1722 Output Total 0 Balance 2600 1131 1722 Weight 131.3 kg 130.6 kg 130.6 kg General appearance: PRESENT: no acute distress, cooperative Neck exam: ABSENT: JVD Respiratory exam: PRESENT: clear to auscultation larry Cardiovascular exam: PRESENT: RRR, +S1, +S2. ABSENT: tachycardia Neurological exam: PRESENT: alert, awake, oriented to person, oriented to place, oriented to time Results Laboratory Results: WBC 6.6 10^3/uL (4.0-10.5) 04/22/19 04:31 RBC 4.29 10^6/uL (4.35-5.55) L 04/22/19 04:31 Hgb 14.2 g/dL (13.5-17.0) 04/22/19 04:31 Hct 41.0 % (37.9-51.0) 04/22/19 04:31 MCV 95 fl (80-97) 04/22/19 04:31 MCH 33.1 pg (27.0-33.4) 04/22/19 04:31 MCHC 34.7 g/dL (32.0-36.0) 04/22/19 04:31 RDW 13.0 % (11.5-14.0) 04/22/19 04:31 Plt Count 193 10^3/uL (150-450) 04/22/19 04:31 Lymph % (Auto) 34.0 % (13-45) 04/21/19 05:44 [place] % (Auto) 12.2 % (3-13) 04/21/19 05:44 Eos % (Auto) 2.1 % (0-6) 04/21/19 05:44 Baso % (Auto) 0.6 % (0-2) 04/21/19 05:44 Absolute Neuts (auto) 3.4 10^3/uL (1.7-8.2) 04/21/19 05:44 Absolute Lymphs (auto) 2.3 10^3/uL (0.5-4.7) 04/21/19 05:44 Absolute Monos (auto) 0.8 10^3/uL (0.1-1.4) 04/21/19 05:44 Absolute Eos (auto) 0.1 10^3/uL (0.0-0.6) 04/21/19 05:44 Absolute Basos (auto) 0.0 10^3/uL (0.0-0.2) 04/21/19 05:44 Seg Neutrophils % 51.1 % (42-78) 04/21/19 05:44 PT 12.8 SEC (11.4-15.4) 04/22/19 04:31 INR 0.96 04/22/19 04:31 Sodium 134.3 mmol/L (137-145) L 04/20/19 16:01 Potassium 4.2 mmol/L (3.6-5.0) 04/20/19 16:01 Chloride 97 mmol/L (98-107) L 04/20/19 16:01 Carbon Dioxide 27 mmol/L (22-30) 04/20/19 16:01 Anion Gap 10 (5-19) 04/20/19 16:01 BUN 12 mg/dL (7-20) 04/20/19 16:01 Creatinine 1.16 mg/dL (0.52-1.25) 04/20/19 16:01 Est GFR ( Amer) > 60 (>60) 04/20/19 16:01 Est GFR (MDRD) Non-Af > 60 (>60) 04/20/19 16:01 Glucose 220 mg/dL (75-110) H 04/20/19 16:01 POC Glucose 100 mg/dL (70-110) 04/22/19 15:33 Hemoglobin A1c % 9.0 % (4.7-6.0) H 04/21/19 05:44 Calcium 9.3 mg/dL (8.4-10.2) 04/20/19 16:01 Total Bilirubin 0.6 mg/dL (0.2-1.3) 04/20/19 16:01 Direct Bilirubin 0.2 mg/dL (0.0-0.4) 04/20/19 16:01 Neonat Total Bilirubin Not Reportable 04/20/19 16:01 Neonat Direct Bilirubin Not Reportable 04/20/19 16:01 Neonat Indirect Bili Not Reportable 04/20/19 16:01 AST 49 U/L (17-59) 04/20/19 16:01 ALT 38 U/L (<50) 04/20/19 16:01 Alkaline Phosphatase 69 U/L (38-126) 04/20/19 16:01 Creatine Kinase 133 U/L (55-170) 04/21/19 17:27 CK-MB (CK-2) 4.48 ng/mL (<4.55) 04/21/19 17:27 Troponin I 0.134 ng/mL 04/21/19 17:27 Total Protein 7.4 g/dL (6.3-8.2) 04/20/19 16:01 Albumin 4.4 g/dL (3.5-5.0) 04/20/19 16:01 Triglycerides 134 mg/dL (<150) 04/21/19 05:44 Cholesterol 141.99 mg/dL (0-200) 04/21/19 05:44 LDL Cholesterol Direct 68 mg/dL (<100) 04/21/19 05:44 VLDL Cholesterol 27.0 mg/dL (10-31) 04/21/19 05:44 HDL Cholesterol 58 mg/dL (>40) 04/21/19 05:44 Lipase 102.9 U/L (23-300) 04/20/19 16:01 TSH 1.85 uIU/mL (0.47-4.68) 04/21/19 05:44 Urine Color YELLOW 04/22/19 13:15 Urine Appearance CLEAR 04/22/19 13:15 Urine pH 8.0 (5.0-9.0) 04/22/19 13:15 Ur Specific [place] 1.010 04/22/19 13:15 Urine Protein NEGATIVE mg/dL (NEGATIVE) 04/22/19 13:15 Urine Glucose (UA) >=500 mg/dL (NEGATIVE) H 04/22/19 13:15 Urine Ketones NEGATIVE mg/dL (NEGATIVE) 04/22/19 13:15 Urine Blood NEGATIVE (NEGATIVE) 04/22/19 13:15 Urine Nitrite NEGATIVE (NEGATIVE) 04/22/19 13:15 Urine Bilirubin NEGATIVE (NEGATIVE) 04/22/19 13:15 Urine Urobilinogen NEGATIVE mg/dL (<2.0) 04/22/19 13:15 Ur Leukocyte Esterase NEGATIVE (NEGATIVE) 04/22/19 13:15 Urine WBC (Auto) 0 /HPF 04/22/19 13:15 Urine RBC (Auto) 4 /HPF 04/22/19 13:15 Urine Bacteria (Auto) TRACE /HPF 04/20/19 17:27 Squamous Epi Cells Auto <1 /HPF 04/20/19 17:27 Urine Mucus (Auto) RARE /LPF 04/22/19 13:15 Urine Ascorbic Acid NEGATIVE (NEGATIVE) 04/22/19 13:15 Urine Opiates Screen NEGATIVE 04/20/19 17:27 Urine Methadone Screen NEGATIVE 04/20/19 17:27 Ur Barbiturates Screen NEGATIVE 04/20/19 17:27 Ur Phencyclidine Scrn NEGATIVE 04/20/19 17:27 Ur Amphetamines Screen NEGATIVE 04/20/19 17:27 U Benzodiazepines Scrn NEGATIVE 04/20/19 17:27 Urine Cocaine Screen NEGATIVE 04/20/19 17:27 U Marijuana (THC) Screen NEGATIVE 04/20/19 17:27 Serum Alcohol < 10 mg/dL (NONE DETECTED) 04/20/19 16:01 04/20/19 04/21/19 04/21/19 16:01 05:44 05:44 CK-MB (CK-2) 5.13 H Troponin I 0.026 0.318 Cancelled 04/21/19 04/21/19 11:46 17:27 CK-MB (CK-2) 4.75 H 4.48 Troponin I 0.175 0.134 Impressions: Chest X-Ray 04/20/19 16:28 IMPRESSION: NO ACUTE RADIOGRAPHIC FINDING IN THE CHEST. Plan Time Spent: Less than 30 Minutes Stroke Is this a Stroke Patient?: No Acute Heart Failure - Is this a Heart Failure Patient?: No
[2019-04-22 17:49] VITALS: BP 127/74
[2019-04-23] MEDS ORDERED: DILTIAZEM HCL 120 MG CAP.SR.24H PO SCH (10:00)
== END 2019-04-22 18:00 | disposition home or self-care (01) | DRG 310 ==
LOC: ER 15:47 → EH 18:18 → 3W 20:27
PROVIDERS: ADMIT Internal Medicine; ATTEND Internal Medicine
PROC: 5A09457 Assistance with Respiratory Ventilation, 24-96 Consecutive Hours, Continuous Positive Airway Pressure (ICD-10-PCS; principal; 2019-04-20)
DX: I48.92 Unspecified atrial flutter (principal); F10.10 Alcohol abuse, uncomplicated; I10 Essential (primary) hypertension; I45.10 Unspecified right bundle-branch block; Z66 Do not resuscitate; J44.9 Chronic obstructive pulmonary disease, unspecified; G47.33 Obstructive sleep apnea (adult) (pediatric); E78.5 Hyperlipidemia, unspecified; E11.41 Type 2 diabetes mellitus with diabetic mononeuropathy; F17.210 Nicotine dependence, cigarettes, uncomplicated; I44.1 Atrioventricular block, second degree; Z79.4 Long term (current) use of insulin; Z88.0 Allergy status to penicillin; Z59.8 Other problems related to housing and economic circumstances; Z79.899 Other long term (current) drug therapy
CPT/HCPCS: 36415; 71045; 80053; 80061; 80307; 81001; 82550; 82553; 82962; 83036; 83690; 84443; 84484; 85025; 85027; 85610; 93005; 93010; 93306; 94660; 96361; 96372; 96374; 96375; 99291; J1650; J1815; J2060; J3490; J7030; J7120